=== PATIENT | male | born 1995 | race Caucasian/White ===

== ENCOUNTER 2017-11-11 21:00 | Emergency (ER) | payer OTHER ==
[~2017-11-11] VITALS: Ht 177.8 cm; Wt 68.0 kg
[2017-11-11] MEDS ORDERED: HYDROmorphone(ER ONLY) 1 MG/ML IVP ONE ×2 (21:05→21:25)
--- NOTE | 2017-11-11 21:11 | ER Report ---
History and Physical Time Seen By MD: 21:05 Hx. of Stated Complaint: PATIENT WAS CARRYING A PAIN OF HOT OIL, HE SPILLED IT ALL OVER HIM SELF. HPI/ROS CHIEF COMPLAINT: Hot oil mccullough, left face, left neck, left arm HISTORY OF PRESENT ILLNESS: 22-year-old male carrying a hot pot of oil at work when it spilled it on his left arm, left face and neck. He did not get any in his airway or mouth. Patient was brought in by EMS. He received 2 doses of fentanyl 50 g and is still in significant distress on arrival. Patient is unsure when his last tetanus booster is. It's likely greater than 10 years. A booster will be ordered. Patient notes no difficulty breathing. REVIEW OF SYSTEMS: Respiratory: No cough, no dyspnea. Cardiovascular: No chest pain, no palpitations. Gastrointestinal: No vomiting, no abdominal pain. Musculoskeletal: No back pain. Allergies: Coded Allergies: No Known Drug Allergies (Unverified , 11/11/17) Home Meds Active Scripts Oxycodone Hcl/Acetaminophen (PERCOCET 5-325 MG TABLET) 1 Each Tablet, 1-2 EACH PO Q4-6H Y for PAIN, #15 Prov:KOSTA GAONA DO 11/11/17 Reviewed Nurses Notes: Yes Old Medical Records Reviewed: Yes Constitutional Vital Sign - Last 24 Hours 11/11/17 11/11/17 11/11/17 11/11/17 21:02 21:02 21:15 21:30 Temp 98.1 Pulse 74 84 ??? Resp 24 B/P (MAP) 154/74 (100) 155/93 (113) 130/83 (99) Pulse Ox 91 92 99 O2 Delivery Room Air 11/11/17 11/11/17 11/11/17 11/11/17 21:45 22:00 22:15 22:30 Pulse 68 54 52 51 B/P (MAP) 143/80 (101) 147/84 (105) 136/93 (107) 138/89 (105) Pulse Ox 99 98 99 95 11/11/17 11/11/17 11/11/17 11/11/17 22:45 23:00 23:05 23:15 Pulse 61 61 B/P (MAP) 139/92 (108) 128/83 (98) 127/88 (101) Pulse Ox 96 97 2/11/11/17 11/11/17 11/11/17 23:20 23:30 23:35 23:45 Pulse 51 45 B/P (MAP) 135/81 (99) 136/61 (86) Pulse Ox 97 98 11/11/17 11/12/17 11/12/17 23:50 00:00 00:05 Pulse 54 48 B/P (MAP) 123/81 (95) Pulse Ox 98 91 Physical Exam General Appearance: The patient is alert, has no immediate need for airway protection and no current signs of toxicity.. Moderate to severe distress HEENT: Pupils equal and round no injection., Patient has significant erythema to the entire left side of his face. Respiratory: Chest is non tender, lungs are clear to auscultation. There is gross erythema to the upper chest and left neck area consistent with first- degree mccullough. There are a few blisters that have ruptured on the anterior lateral neck Cardiac: regular rate and rhythm Gastrointestinal: Abdomen is soft and non tender, no masses, bowel sounds normal. Musculoskeletal: Neck: Neck is supple and non tender. Extremities have full range of motion and are non tender. There is extensive mccullough down the left upper extremity. There are some ruptured blisters on the lateral epicondyle area and is inferior to that region. The left hand is uninvolved. Skin: No rashes or lesions. DIFFERENTIAL DIAGNOSIS: After history and physical exam differential diagnosis was considered for 1st and second-degree burnsof left face, left chest, left neck, left arm Medical Decision Making ED Course/Re-evaluation Clinical Indication for ER IV: Hydration, IV Access ED Course Patient was admitted to an examination by EMS. H&P was done. The differential diagnoses was considered. On conical examination. Patient has no injury to his airway apparently. Patient was in significant pain. He was medicated with Dilaudid 1 mg 2 IV. Phenergan 25 and Zofran 4 mg. After approximate 45 minutes. This pain was significantly improved. He is resting comfortably. Toradol 30 mg was admitted for IV. The blistering developed to the left maxillary cheek area. There was some blistering on the chin on the neck. And some ruptured blisters on the left forearm. Patient was monitored since he became hypoxic with the aggressive dosing of Dilaudid. After a while he was able to tolerate room air. He was discharged home with Percocet for pain. He' s advised daily wound care. He is advised to follow-up with general surgery for referral to wound care clinic. Decision to Disposition Date: Nov 11, 2017 Decision to Disposition Time: 23:58 Depart Departure Latest Vital Signs Vital Signs Date Time Temp Pulse Resp B/P (MAP) Pulse Ox O2 Delivery O2 Flow Rate FiO2 11/12/17 00:05 48 91 11/12/17 00:00 123/81 (95) 11/11/17 21:02 98.1 24 Room Air Impression: Primary Impression: Partial thickness burn of face Additional Impressions: Partial thickness burn of neck Partial thickness burn of multiple sites of left upper extremity Partial thickness burn of right forearm Condition: Improved Disposition: HOME OR SELF-CARE Referrals: DONTE THOMAS MD New Scripts Oxycodone Hcl/Acetaminophen (PERCOCET 5-325 MG TABLET) 1 Each Tablet 1-2 EACH PO Q4-6H Y for PAIN, #15 Prov: KOSTA GAONA DO 11/11/17 Patient Instructions: Second Degree Burn (ED) Additional Instructions: Take ibuprofen 200 mg 3 tablets 3 times a day with food Follow-up with in one day for burn check and continued burn management Problem Qualifiers Primary Impression: Partial thickness burn of face Encounter type: initial encounter Qualified Codes: T20.20XA - Burn of second degree of head, face, and neck, unspecified site, initial encounter Additional Impressions: Partial thickness burn of neck Encounter type: initial encounter Qualified Codes: T20.27XA - Burn of second degree of neck, initial encounter Partial thickness burn of multiple sites of left upper extremity Encounter type: initial encounter Qualified Codes: T22.292A - Burn of second degree of multiple sites of left shoulder and upper limb, except wrist and hand, initial encounter Partial thickness burn of right forearm Encounter type: initial encounter Qualified Codes: T22.211A - Burn of second degree of right forearm, initial encounter KOSTA GAONA DO Nov 11, 2017 21:11
[2017-11-11] MEDS ORDERED: ONDANSETRON 4 MG/2 ML VIAL IVP ONE (21:20)
[2017-11-11] MEDS ORDERED: PROMETHAZINE 25 MG/ML 1 ML AMP IVP ONE (21:20)
[2017-11-11] MEDS ORDERED: KETAMINE HCL 200 MG/20 ML MDV IVP ONE (22:05)
[2017-11-11] MEDS ORDERED: KETOROLAC 30 MG/ML VIAL IVP ONE (22:20)
[2017-11-11] MEDS ORDERED: SILVER sulfADI 1% CR 20GM TB TP ONE (22:25)
[2017-11-11] MEDS ORDERED: EMS NS 0.9%(*) 1000 ML BAG 1,000 ML IV ONE (22:30)
[2017-11-11] MEDS ORDERED: oxyCODONE/ACETAMIN 5/325MG TH 2 TAB/BOTTLE PO ONE ×2 (22:50)
[2017-11-11] MEDS ORDERED: OXYC-865 PO (22:53)
[2017-11-12] VITALS: BP 123/81
[2017-11-12] MEDS ORDERED: SILVER sulfADI 1% CR 20GM TB TP ONE
[2017-11-12] MEDS ORDERED: DIPHTH/TETANUS/ACEL. PERTUSSIS IM ONLY ONE (00:05)
== END 2017-11-12 00:14 | disposition home or self-care (01) ==
LOC: ER 21:16
DX: T22.211A Burn of second degree of right forearm, initial encounter (principal); T20.20XA Burn of second degree of head, face, and neck, unspecified site, initial encounter; T20.27XA Burn of second degree of neck, initial encounter; T22.292A Burn of second degree of multiple sites of left shoulder and upper limb, except wrist and hand, initial encounter; X10.2XXA Contact with fats and cooking oils, initial encounter; Y99.0 Civilian activity done for income or pay
CPT/HCPCS: 90471; 90715; 96361; 96374; 96375; 99284; J1170; J1885; J2405; J2550

== ENCOUNTER → 2017-11-11 | Outpatient (CLI) | payer OTHER ==
[~2017-11-11] MED LIST: OXYC-865 PO
== END ==
LOC: AMB 20:41
PROVIDERS: ATTEND Nurse Practitioner
DX: T20.00XA Burn of unspecified degree of head, face, and neck, unspecified site, initial encounter (principal); T20.07XA Burn of unspecified degree of neck, initial encounter; T22.00XA Burn of unspecified degree of shoulder and upper limb, except wrist and hand, unspecified site, initial encounter; X10.2XXA Contact with fats and cooking oils, initial encounter; W10.9XXA Fall (on) (from) unspecified stairs and steps, initial encounter
CPT/HCPCS: A0425; A0433

== ENCOUNTER 2018-05-26 18:12 | Emergency (ER) | payer SELFPAY ==
--- NOTE | 2018-05-26 18:19 | ER Report ---
History and Physical Time Seen By MD: 18:20 HPI/ROS CHIEF COMPLAINT: laceration of right index finger HISTORY OF PRESENT ILLNESS: This is a 22 year old male. He cut his right index finger washing dishes. Normal motion although with pain. Unsure when last tetanus shot was. Allergies: Coded Allergies: No Known Drug Allergies (Unverified , 05/26/18) Home Meds Discontinued Scripts Oxycodone Hcl/Acetaminophen (PERCOCET 5-325 MG TABLET) 1 Each Tablet, 1-2 EACH PO Q4-6H PRN for PAIN, #15 Prov:KOSTA GAONA DO 11/11/17 Reviewed Nurses Notes: Yes Hx Substance Use Disorder: No Hx Alcohol Use: No Constitutional Vital Sign - Last 24 Hours 05/26/18 05/26/18 18:16 18:55 Temp 97.8 Pulse 50 Resp 20 B/P (MAP) 107/84 112/66 (81) Pulse Ox 94 O2 Delivery Room Air Physical Exam General: Alert, no acute distress. Skin: 2cm laceration radial side of proximal phalanx of index finger Neuro: normal sensation and motor. Musculoskeletal: Normal motion. No deficits. Cardiovascular: Normal capillary refill. Medical Decision Making ED Course/Re-evaluation ED Course Procedure: Laceration Repair Verbal consent from patient after discussing repair options, risks and benefits. Wound cleaned extensively with Hibiclens and saline. Anesthesia: 1% lidocaine without epinephrine with 0.25% bupivacaine without epinephrine. Location: proximal phalanx, radial side, right index finger. Length: 2cm. Character: into subcutaneous. There were no deep structures involved. No tendon injury was identified. Wound repair: 4 interrupted 4-0 Ethilon. The wound repair was simple and performed by myself. Wound care instructions discussed. Sutures need to be removed in 7 days. Tetanus booster given. Decision to Disposition Date: May 26, 2018 Decision to Disposition Time: 18:47 Depart Departure Latest Vital Signs Vital Signs Date Time Temp Pulse Resp B/P (MAP) Pulse Ox O2 Delivery O2 Flow Rate FiO2 05/26/18 18:55 112/66 (81) 05/26/18 18:16 97.8 50 20 94 Room Air Impression: Primary Impression: Laceration Condition: Improved Disposition: HOME OR SELF-CARE Patient Instructions: Laceration (ED) Additional Instructions: Wound Care: Wash the wound once a day with soap and water. Dry the wound and apply a small amount of antibiotic ointment with a clean dressing. If the dressing becomes wet or dirty, repeat cleaning and dressing as above. No soaking the wound; no swimming. Stitches need to be removed in 7 days. Pain Control: Use Tylenol or ibuprofen for pain. Using and ice pack can help reduce swelling. CHARLIE DELANEY MD May 26, 2018 18:19
[2018-05-26] MEDS ORDERED: DIPHTH/TETANUS/ACEL. PERTUSSIS IM ONLY ONE (18:20)
[2018-05-26 18:55] VITALS: BP 112/66
== END 2018-05-26 18:55 | disposition home or self-care (01) ==
LOC: ER 18:49
DX: S61.210A Laceration without foreign body of right index finger without damage to nail, initial encounter (principal)
CPT/HCPCS: 90471; 90715; 99283